=== PATIENT | female | born 1965 | race Caucasian/White ===

== ENCOUNTER 2021-08-07 16:01 | Outpatient (CLI) | payer OTHER, SELFPAY ==
[2021-08-07 16:22] VITALS: BP 156/77; PULSE 91; RESP 16; TEMP 36.6; O2SAT 96; BMI 54.9
[2021-08-07] MEDS: 0.9% Saline Lock 10 ML Syringe IV (16:28)
[2021-08-07 17:15] VITALS: BP 130/66; PULSE 81; RESP 16; TEMP 36.9; O2SAT 95
[2021-08-07 18:04] VITALS: BP 146/71; PULSE 84; RESP 16; TEMP 36.9; O2SAT 97
== END 2021-08-07 18:15 | disposition home or self-care (01) ==
LOC: MS3OUT 16:01 → MS3 16:04
PROVIDERS: PCP Internal Medicine; Referring Provider Nurse Practitioner Acute Care; Visit Provider Nurse Practitioner Acute Care
DX: U07.1 COVID-19 (principal)
CPT/HCPCS: J7050; M0245; Q0245; A4216